=== PATIENT | male | born 1960 | race Hispanic/Latino ===

== ENCOUNTER 2025-05-15 10:08 | Emergency (ER) | payer OTHER ==
[~2025-05-15] VITALS: Ht 172.7 cm; Wt 79.8 kg
[~2025-05-15 10:08] MED LIST: ATORVASTATIN CA40 MG PO; FLOMAX0.4 MG PO; IBUPROFEN400 MG PO; OMEPRAZOLE20 MG PO; TRULANCE PO
[2025-05-15 10:15] VITALS: PULSE 68; RESP 18; TEMP 97.1
[2025-05-15] MEDS ORDERED: ONDANSETRON HCL INJ 2MG/ML 2ML 2 MG/ML VIAL ONE (10:24)
[2025-05-15] MEDS ORDERED: SODIUM CHLORIDE 0.9% 1000ML 1,000 ML ONE (10:24)
[2025-05-15 11:04] LABS: BASOPHILS # (AUTO) 0.2 (0.0-0.1); BASOPHILS % 1.1 % (0.0-1.0); EOSINOPHILS # (AUTO) 0.3 (0.0-0.4); EOSINOPHILS % 1.9 % (0.0-6.0); HEMATOCRIT 43.2 % (38.2-49.6); HEMOGLOBIN 14.5 g/dL (14.0-18.0); LYMPHOCYTES # (AUTO) 1.1 (1.0-3.2); LYMPHOCYTES % 8.5 % (18.0-39.1); MEAN CORPUSCULAR HEMOGLOBIN 29.7 pg (28-32); MEAN CORPUSCULAR HGB CONC 33.6 g/dL (31-35); MEAN CORPUSCULAR VOLUME 88.3 fL (81-99); MONOCYTES # (AUTO) 0.6 (0.2-0.8); MONOCYTES % 4.1 % (4.4-11.3); NEUTROPHILS # (AUTO) 11.2 (2.1-6.9); PLATELET COUNT 350 x10e3/uL (140-360); RED BLOOD COUNT 4.89 x10e6/uL (4.3-5.7); RED CELL DISTRIBUTION WIDTH 13.2 % (11.7-14.4); WHITE BLOOD COUNT 13.37 x10e3/uL (4.8-10.8)
[2025-05-15 11:34] LABS: CALCIUM 9.2 mg/dL (8.4-10.2); CREATININE, SERUM 0.87 mg/dL (0.72-1.25)
[2025-05-15] MEDS: SODIUM CHLORIDE 0.9% 1000ML 1,000 ML IV ONE (12:00)
[2025-05-15] MEDS: ONDANSETRON HCL INJ 2MG/ML 2ML 2 MG/ML VIAL IV STA (12:01)
[2025-05-15 12:36] VITALS: BP 142/62; PULSE 84; RESP 18; TEMP 98.3; O2SAT 98
== END 2025-05-15 12:45 | disposition home or self-care (01) ==
LOC: ER 10:27
DX: R06.02 Shortness of breath (principal); R11.2 Nausea with vomiting, unspecified; T67.5XXA Heat exhaustion, unspecified, initial encounter; E78.5 Hyperlipidemia, unspecified
CPT/HCPCS: 36415; 80048; 82550; 85025; 93005; 99284; J2405; J7030